=== PATIENT | male | born 2000 | race Caucasian/White ===

== ENCOUNTER 2021-10-14 17:53 | Emergency (ER) | payer SELFPAY ==
[2021-10-14] MEDS ORDERED: Tetracaine HCl/PF 0.5% 4 ML Bottle EYELF ONE (21:11)
== END 2021-10-14 21:29 | disposition home or self-care (01) ==
LOC: MW.ED 17:53
DX: H02.816 Retained foreign body in left eye, unspecified eyelid (principal); F17.210 Nicotine dependence, cigarettes, uncomplicated
CPT/HCPCS: 65220; 99283; 99283-25